=== PATIENT | female | born 1975 | race Caucasian/White ===

== ENCOUNTER 2018-12-04 07:19 | Day surgery (SDC) | payer BC ==
[~2018-12-04] VITALS: Ht 152.4 cm; Wt 68.9 kg
[~2018-12-04 07:19] MED LIST: ATOR1TAB19 PO; BUPIVACAINE HCL 0.5% 10 ML VIAL As Ordered ONE; BUPR75TA5 PO; LIDOCAINE 1% MDV 20ML VIAL As Ordered ONE; PARO5TAB PO; VITAD1000T PO
[2018-12-04] MEDS ORDERED: ceFAZolin 2 GM/D5W 50 ML IV BAG (J0690 PER 500MG) As Ordered ONE (07:45)
[2018-12-04] MEDS ORDERED: LIDOCAINE 2% INJ 100 MG/5 ML SDV (FOR ANES.) As Ordered ONE (08:30)
[2018-12-04] MEDS ORDERED: ONDANSETRON 4MG/2ML VIAL (J2405) As Ordered ONE (08:30)
[2018-12-04] MEDS ORDERED: PROPOFOL 200 MG/20 ML VIAL As Ordered ONE (08:30)
[2018-12-04] MEDS ORDERED: MIDAZOLAM INJ 2 MG/2 ML VIAL (J2250) As Ordered ONE (08:30)
[2018-12-04] MEDS ORDERED: fentaNYL 100 MCG/2 ML INJECTION (J3010) As Ordered ONE (08:30)
[2018-12-04] MEDS ORDERED: KETOROLAC 60 MG/2 ML VIAL (J1885) As Ordered ONE (08:30)
[2018-12-04] MEDS ORDERED: dexameTHASONE 4 MG/ML 1ML VIAL (J1100) As Ordered ONE (08:46)
[2018-12-04] MEDS ORDERED: ePHEDrine SULFATE 25 MG/5 ML(5MG/ML) SYRINGE As Ordered ONE (09:13)
[2018-12-04] MEDS ORDERED: HYDR-3713 PO (09:22)
[2018-12-04 10:15] VITALS: BP 138/78
--- NOTE | 2018-12-05 08:01 | RO ---
DATE OF PROCEDURE: 12/04/2018 PREPROCEDURE DIAGNOSIS: Left fourth toe painful deformity and painful retained hardware in first and fifth metatarsals. POSTPROCEDURE DIAGNOSIS: Left fourth toe painful deformity and painful retained hardware in first and fifth metatarsals. PROCEDURE: Left fourth toe amputation and retained hardware removal first and fifth metatarsals. SURGEON: Patel Cruz DPM UNIX MANAGER: None ANESTHESIA: Monitored anesthesia care with preoperative injection of 20 mL of 1:1 mixture of 1% lidocaine plain and 0.50 Marcaine plain. ESTIMATED BLOOD LOSS: Minimal. MATERIAL: #3-0 mixed with #4-0 Vicryl, #4-0 nylon. INJECTABLES: 1 mL of Decadron 4 mg/mL. SPECIMENS: Left fourth toe. COMPLICATIONS: None. CONDITION: Stable. Alicia Orozco is a 43-year-old female who presents to [facility] with painful fourth toe as well as painful K-wires to both first and fifth metatarsals. She had previous bunionectomy and hammertoe surgery. The K-wires are in place, but are causing some discomfort. She had previously fourth hammertoe correction to elevate chronic painful corn, however, the corn persists and the toe remains deformed and causing discomfort. Decision was made to bring her to the operating room for removal of K-wires and amputation of the fourth toe. The patient's site and side were identified and marked in the preoperative holding area. Consent was reviewed and obtained. All risks, complications, and alternatives to the procedure were explained to the patient in detail and all questions were answered. PROCEDURE: The patient was brought to the operating room and placed on the operating room table in supine position. Monitored anesthesia care was delivered by the anesthesia team. Preoperative injection of 20 mL of 1:1 mixture of 1% lidocaine plain and 0.50% Marcaine plain was injected to the left foot. Left foot was prepped and draped in a normal sterile fashion. Tourniquet was applied to the left ankle and inflated to 225 mmHg. Incisions were made over the first and fifth metatarsals at the sites were the K-wires were located using #15. Dissection was carried down to the bone where the K-wires were identified, these were removed with surgical pliers. Sites were irrigated with normal saline and the incisions were pared with #4-0 Vicryl and #4-0 nylon. Next, attention was paid of the fourth toe. An elliptical incision was made around the fourth toe and carried through with a #15 blade. The toe was disarticulated at the metatarsal phalangeal joint and sent for pathology. Site was irrigated with normal saline. Incision was closed with #4-0 nylon. Tourniquet was deflated. Sterile dressings were applied. Patient was brought to post-anesthesia care unit (PACU) with vital signs stable and neurovascular status intact. She will be weightbearing as tolerated in a surgical shoe. She will followup in the office next week.
== END 2018-12-04 10:26 | disposition home or self-care (01) ==
LOC: M SDC 07:19
PROVIDERS: ATTEND Podiatrist Foot & Ankle Surgery
DX: M21.6X1 Other acquired deformities of right foot (principal); M79.675 Pain in left toe(s); T84.84XA Pain due to internal orthopedic prosthetic devices, implants and grafts, initial encounter; E78.5 Hyperlipidemia, unspecified; F41.9 Anxiety disorder, unspecified; F32.9 Major depressive disorder, single episode, unspecified; Z79.899 Other long term (current) drug therapy; F17.210 Nicotine dependence, cigarettes, uncomplicated; Y79.2 Prosthetic and other implants, materials and accessory orthopedic devices associated with adverse incidents
CPT/HCPCS: 20670; 28820; 88304; 88311; J0690; J1100; J1885; J2250; J2405; J3010